=== PATIENT | female | born 1960 | race American Indian/Alaskan Native ===

== ENCOUNTER 2017-03-13 14:11 | Emergency (ER) | payer MEDICAID ==
[2017-03-13 14:25] VITALS: BP 129/79
[2017-03-13] MEDS ORDERED: Sodium Chloride 0.9% 1,000 ML IV ONE (14:25)
[2017-03-13] MEDS ORDERED: Alum Hydrox/Mag Hydrox/Simeth 30 ML, Lidocaine 2% 15 ML PO ONE ×2 (14:25)
[2017-03-13] MEDS ORDERED: Ondansetron 4 MG/2 ML SDV IVPUSH ONE (14:25)
[2017-03-13] MEDS ORDERED: Pantoprazole 40 MG Vial IVPUSH ONE (14:25)
[2017-03-13] MEDS ORDERED: HYDROmorphone 0.5 MG/0.5 ML Syringe IVPUSH ONE (14:27)
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
[2017-03-13] MEDS: Sodium Chloride 0.9% 10 ML Syringe FLUSH PRN ×2 (14:51→17:43)
[2017-03-13] MEDS ORDERED: LORazepam 2 MG/ML MDV IVPUSH ONE (15:47)
[2017-03-13] MEDS ORDERED: Dicyclomine 10 MG Cap PO ONE (15:50)
[2017-03-13] MEDS ORDERED: HYDROmorphone 1 MG/ML Syringe IVPUSH ONE (16:24)
--- NOTE | 2017-03-13 17:03 | CR ---
Chest: Portable view of the chest was obtained. Comparison: No prior chest x-ray. Heart size and mediastinum are normal. Lungs are clear. Bony structures are grossly intact. Impression: 1. Nothing acute is identified on portable chest x-ray. Diagnostic code #1
[2017-03-13] MEDS ORDERED: Diatrizoate Meglumine/Diatrizoate Sodium 37% 120 ML Bottle PO ONE (17:04)
[2017-03-13] MEDS ORDERED: Iopamidol 612 MG/ML 150 ML Bottle IVPUSH ONE (17:04)
--- NOTE | 2017-03-13 18:25 | CT ---
CT abdomen and pelvis Technique: Multiple axial sections were obtained from above the dome of the diaphragm inferiorly through the pubic symphysis. Intravenous and oral contrast was utilized. Delayed images were obtained through the bladder. Comparison: No prior CT study is available. Findings: Visualized lung bases shows nothing acute. Liver shows no focal parenchymal abnormality. Previous cholecystectomy is noted. Spleen appears within normal limits. Adrenal glands show no nodule. Pancreas is normal. Kidneys show symmetric contrast enhancement without hydronephrosis or mass. Abdominal aorta shows no aneurysmal dilatation. No retroperitoneal adenopathy or mesenteric abnormalities are seen. Surgical clips are seen within the lower abdomen and pelvis. No pelvic mass or adenopathy is seen. No bowel dilatation is seen. Appendix is seen which appears within normal limits. Delayed images shows contrast within the bladder. Bone window settings were reviewed which show scoliosis with spine with scattered degenerative change. Severe disc space narrowing is seen at L5-S1 with vacuum canal. Impression: 1. Incidental findings as noted above. Nothing acute is identified on CT study of the abdomen and pelvis. Diagnostic code #2
== END 2017-03-13 18:53 | disposition home or self-care (01) ==
LOC: JD.ED 14:11
DX: R10.12 Left upper quadrant pain (principal); E03.9 Hypothyroidism, unspecified; Z88.6 Allergy status to analgesic agent; Z88.8 Allergy status to other drugs, medicaments and biological substances; Z79.899 Other long term (current) drug therapy; Z87.891 Personal history of nicotine dependence
CPT/HCPCS: 36415; 71010; 74177; 80053; 80306; 81001; 83690; 84484; 85025; 85610; 85730; 86140; 93005; 96361; 96374; 96375; 96376; 99285; A9270; C9113; J1170; J2060; J2405; J7040; J7050; Q9963; Q9967; 99284

== ENCOUNTER 2017-11-07 15:29 | Emergency (ER) | payer SELFPAY ==
[2017-11-07 15:43] VITALS: BP 104/55
[2017-11-07] MEDS ORDERED: Sodium Chloride 0.9% 1,000 ML IV ONE (16:03)
[2017-11-07] MEDS ORDERED: HYDROmorphone 0.5 MG/0.5 ML SYRINGE IVPUSH ONE (16:03)
[2017-11-07] MEDS ORDERED: Sodium Chloride 0.9% 10 ML Syringe FLUSH PRN (16:05)
[2017-11-07] MEDS ORDERED: Ondansetron 4 MG/2 ML SDV IVPUSH ONE (16:05)
--- NOTE | 2017-11-07 16:44 | EDM.PDOC ---
ED HPI GENERAL MEDICAL PROBLEM - General Chief Complaint: Abdominal Pain Stated Complaint: LEFT SIDE ABDOMINAL PAINS Time Seen by Provider: 11/07/17 16:08 Source of Information: Reports: Patient History Limitations: Reports: No Limitations - History of Present Illness INITIAL COMMENTS - FREE TEXT/NARRATIVE: 57 year old female presents for evaluation and treatment of abdominal pain. Reports pain to the left lower abdomen. States the pain starts in the LLQ and travels to the left upper quadrant. Reports the pain started gradually and has now been present for 3 days. Describes the pain as a sharp pain that is worse with movement. Pain is currently a 9/10. States she feels like she is "having a heart attack". She denies any chest pain or shortness of breath. No cardiac history. Reports associated symptoms of a decreased appetite, nausea, vomiting and chills. Reports darker than normal urine with increased urinary frequency but no dysuria or hematuria. Reports she has 2-3 bowel movements per day. No constipation, fevers or bloody stools. Patient reports a past medical history of ulcerative colitis. She is shcedule to have colonscopy on November 18 in [place], this is for follow-up for polyp removal during her last colonscopy 5 years ago. Patient reports previous abdominal surgeries of a lap isidoro. Patient currently sees a PCP in [place]. Treatments PHARMACY TEACHER: Reports: Other (see below) Other Treatments PHARMACY TEACHER: tylenol Left Lower Abdomen Pain Score (Numeric/FACES): 9 - Related Data Allergies Allergy/AdvReac Type Severity Reaction Status Date / Time ibuprofen [From Motrin] Allergy Acid Reflux Verified 03/13/17 14:18 ketorolac tromethamine Allergy Airway Verified 03/13/17 14:18 [From Toradol] Tightness Home Meds: Home Meds Gabapentin [Neurontin] 1,200 mg PO TID 12/29/14 [History] Levothyroxine 175 mcg PO ACBREAKFAST 11/18/16 [History] Pantoprazole [ProTONIX] 40 mg PO DAILY 12/29/16 [History] Metoclopramide HCl [Reglan] 10 mg PO TID 03/13/17 [History] Dicyclomine [Bentyl] 20 mg PO TID PRN #20 tab 11/07/17 [Rx] Past Medical History - Past Health History Medical/Surgical History: Denies Medical/Surgical History Respiratory History: Reports: Other (See Below) Other Respiratory History: Nodule in left lung Gastrointestinal History: Reports: Colon Polyp, Other (See Below) Other Gastrointestinal History: ulcerative colitis Musculoskeletal History: Reports: Back Pain, Chronic Endocrine/Metabolic History: Reports: Hypothyroidism Oncologic (Cancer) History: Reports: Colon - Infectious Disease History Infectious Disease History: Reports: Chicken Pox - Past Surgical History GI Surgical History: Reports: Cholecystectomy, Colonoscopy Other GI Surgeries/Procedures: removal of portion of colon due to CA Female Surgical History: Reports: Oophorectomy Social & Family History - Family History Family Medical History: Noncontributory - Tobacco Use Smoking Status *Q: Never Smoker - Caffeine Use Caffeine Use: Reports: Coffee, Soda Caffeine Use Comment: 2cups/day - Recreational Drug Use Recreational Drug Use: No ED ROS GENERAL - Review of Systems Review Of Systems: See Below Constitutional: Reports: Chills, Decreased Appetite. Denies: Fever Cardiovascular: Denies: Chest Pain GI/Abdominal: Reports: Abdominal Pain, Diarrhea (2-3 bowel movements per day), Nausea, Vomiting. Denies: Bloody Stool, Constipation : Reports: Frequency. Denies: Dysuria ED EXAM, GI/ABD - Physical Exam Exam: See Below Exam Limited By: No Limitations General Appearance: Alert, Moderate Distress, Obese Throat/Mouth: Normal Inspection, Normal Lips, Normal Oropharynx, Normal Voice, No Airway Compromise Respiratory/Chest: No Respiratory Distress, Lungs Clear, Normal Breath Sounds Cardiovascular: Normal Peripheral Pulses, Regular Rate, Rhythm, No Murmur GI/Abdominal Exam: Normal Bowel Sounds, Soft, Tender (generalized; greatest in the LLQ). No: Distended, Guarding, Rigid Neurological: Alert, Oriented, Normal Cognition Psychiatric: Anxious, Tearful Skin Exam: Warm, Dry, Normal Color EKG INTERPRETATION EKG Date: 11/07/17 Time: 16:10 Rhythm: NSR Rate (Beats/Min): 53 Guy: Normal P-Wave: Present QRS: Normal ST-T: Elevated (slight V2) QT: Normal EKG Interpretation Comments: NSR at [address] elevation V2. Reviewed by myself and dr. Nolan. Course - Vital Signs Last Recorded V/S: Last Vital Signs Temp 98.7 F 11/07/17 15:42 Pulse 64 11/07/17 15:42 Resp 24 H 11/07/17 15:42 BP 104/55 L 11/07/17 15:42 Pulse Ox 100 11/07/17 15:42 - Orders/Labs/Meds Labs: Laboratory Tests 11/07/17 11/07/17 11/07/17 Range/Units 16:20 16:20 16:40 WBC 7.28 (3.98-10.04) K/mm3 RBC 4.17 (3.98-5.22) M/mm3 Hgb 12.9 (11.2-15.7) gm/L Hct 40.0 (34.1-44.9) % MCV 95.9 H (79.4-94.8) fl MCH 30.9 (25.6-32.2) pg MCHC 32.3 (32.2-35.5) g/dl RDW Std Deviation 46.6 H (36.4-46.3) fL Plt Count 205 (182-369) K/mm3 MPV 10.3 (9.4-12.3) fl Neutrophils % (Manual) 48 (40-60) % Band Neutrophils % 0 (0-10) % Lymphocytes % (Manual) 49 H (20-40) % Atypical Lymphs % 0 % Monocytes % (Manual) 1 L (2-10) % Eosinophils % (Manual) 1 (0.7-5.8) % Basophils % (Manual) 1 (0.1-1.2) Platelet Estimate Adequate Plt Morphology Comment Normal RBC Morph Comment Normal Sodium 142 (136-145) mEq/L Potassium 4.3 (3.5-5.1) mEq/L Chloride 108 H (98-107) mEq/L Carbon Dioxide 28 (21-32) mEq/L Anion Gap 10.3 (5-15) BUN 8 (7-18) mg/dL Creatinine 0.8 (0.55-1.02) mg/dL Est Cr Clr Drug Dosing 71.50 mL/min Estimated GFR (MDRD) > 60 (>60) mL/min BUN/Creatinine Ratio 10.0 L (14-18) Glucose 65 L (74-106) mg/dL Calcium 8.8 (8.5-10.1) mg/dL Total Bilirubin 0.3 (0.2-1.0) mg/dL AST 20 (15-37) U/L ALT 22 (14-59) U/L Alkaline Phosphatase 84 (46-116) U/L Troponin I < 0.017 (0.00-0.056) ng/mL C-Reactive Protein < 0.2 (<1.0) mg/dL Total Protein 7.3 (6.4-8.2) g/dl Albumin 3.5 (3.4-5.0) g/dl Globulin 3.8 gm/dL Albumin/Globulin Ratio 0.9 L (1-2) Lipase 46 L (73-393) U/L Urine Color Light yellow (Yellow) Urine Appearance Clear (Clear) Urine pH 7.0 (5.0-8.0) Ur Specific [place] 1.015 (1.005-1.030) Urine Protein Negative (Negative) Urine Glucose (UA) Negative (Negative) Urine Ketones Negative (Negative) Urine Occult Blood Trace-intact H (Negative) Urine Nitrite Negative (Negative) Urine Bilirubin Negative (Negative) Urine Urobilinogen 0.2 (0.2-1.0) Ur Leukocyte Esterase Negative (Negative) Urine RBC 0-5 (0-5) /hpf Urine WBC Not seen (0-5) /hpf Ur Epithelial Cells 0-5 (0-5) /hpf Urine Bacteria Not seen (FEW) /hpf Urine Mucus Not seen (FEW) /hpf Meds: Medications Discontinued Medications Generic Name Dose Route Start Last Admin Trade Name Freq PRN Reason Stop Dose Admin Dicyclomine HCl 20 mg 11/07/17 17:24 11/07/17 17:31 Bentyl IM 11/07/17 17:25 20 mg ONETIME ONE Administration Hydromorphone HCl 0.5 mg 11/07/17 16:03 11/07/17 16:21 Dilaudid IVPUSH 11/07/17 16:04 0.5 mg ONETIME ONE Administration Sodium Chloride 1,000 mls @ 999 mls/hr 11/07/17 16:03 11/07/17 16:24 Normal Saline IV 11/07/17 17:03 999 mls/hr ONETIME ONE Administration Ondansetron HCl 4 mg 11/07/17 16:05 11/07/17 16:23 Zofran IVPUSH 11/07/17 16:06 4 mg ONETIME ONE Administration Sodium Chloride 10 ml 11/07/17 16:05 11/07/17 16:23 Saline Flush FLUSH 10 ml ASDIRECTED PRN Administration Keep Vein Open - Radiology Interpretation Free Text/Narrative:: flat and upright abdominal xray reviewed by myself and Dr. Nolan shows no acute abdominal process. - Re-Assessments/Exams Free Text/Narrative Re-Assessment/Exam: 11/07/17 17:54 I reviewed the labs and imaging with the patient. She reports pain is returning after receiving Dilaudid earlier. Will try some bentyl and plan to discharge home. Review of the patients records show she has been seen before for abdominal pain, etiology unclear. Last CT was 12-29-16, no acute abnormalities. I see no reason to CT the patient today with a normal xray and normal labs. She is encouraged to follow-up with her PCP and have the colonscopy as planned. Discharge instructions as documented. Departure - Departure Time of Disposition: 17:56 Disposition: Home, Self-Care 01 Condition: Fair Clinical Impression: Abdominal pain - Discharge Information Prescriptions: Dicyclomine [Bentyl] 20 mg PO TID PRN #20 tab PRN Reason: Abdominal Pain Instructions: Abdominal Pain, Adult, [id number] Referrals: PCP,Not In Area [Primary Care Provider] - Forms: ED Department Discharge Additional Instructions: Recommend clear fluids and a bland diet. may advance to a more normal diet as tolerated. Bentyl 1 tab every 8 hours as needed for abdominal pain and cramping. [id number] Tylenol or Motrin as needed for pain relief. Follow-up with your primary care provider this week if you continue to have significant pain. Follow up with your doctor for a colonoscopy as planned. Please return to the ER if your symptoms change or worsen.
[2017-11-07] MEDS ORDERED: Dicyclomine 20 MG/2 ML SDV IM ONE (17:24)
--- NOTE | 2017-11-09 07:00 | CR ---
Abdomen: Supine and upright views of the abdomen were obtained. Comparison: Prior abdominal x-ray of 08/10/15. Multiple surgical clips are seen within the pelvis. Several surgical clips noted from prior cholecystectomy. Scattered gas within colon and small bowel is noted. Several air-fluid levels are seen within small bowel which are mildly prominent. No free air is seen. Impression: 1. Slightly prominent air-fluid levels within small bowel located within the left upper abdomen. Mild focal ileus from underlying abdominal process is possible. 2. Other incidental findings. Diagnostic code #3
== END 2017-11-07 18:15 | disposition home or self-care (01) ==
LOC: JD.ED 15:29 → SUPCPDRO 15:29 → JD.ED 18:15
DX: R10.32 Left lower quadrant pain (principal); E03.9 Hypothyroidism, unspecified; Z88.6 Allergy status to analgesic agent; Z79.899 Other long term (current) drug therapy
CPT/HCPCS: 36415; 74019; 80053; 81001; 83690; 84484; 85007; 85027; 86140; 93005; 96361; 96372; 96374; 96375; 99284; J0500; J1170; J2405; J7040; J7050